=== PATIENT | male | born 2000 | race Caucasian/White ===

== ENCOUNTER 2020-07-01 19:41 | Emergency (ER) | payer OTHER ==
[~2020-07-01] VITALS: Ht 185.4 cm; Wt 86.2 kg
[2020-07-01 19:55] VITALS: BP_SYST 118
--- NOTE | 2020-07-01 20:15 | NUR ---
Patient left without being seen.
== END 2020-07-01 20:15 | disposition left against medical advice (07) ==
LOC: SED 19:41
DX: M79.602 Pain in left arm (principal); Z53.21 Procedure and treatment not carried out due to patient leaving prior to being seen by health care provider